=== PATIENT | female | born 1965 | race Hispanic/Latino ===

== ENCOUNTER 2021-07-16 20:59 | Emergency (ER) | payer OTHER ==
[~2021-07-16] VITALS: Ht 152.4 cm; Wt 74.6 kg
[2021-07-16] MEDS ORDERED: METFORMIN HCL500 MG PO (21:34)
[2021-07-16] MEDS ORDERED: METOPROLOL SUCC25 MG (21:35)
--- OUTSIDE RECORDS SUMMARY | 2021-07-16 21:48 | XMS ---
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 ELeroy VISIT COUNT (12 MO.) 1 BENEDICTO [place] TOTAL 1 NOTE: Visits indicate total known visits. ED/UCC VISIT TRACKING (12 MO.) 07/16/2021 21:01 [facility] [place] TYPE: Emergency COMPLAINT: - LEFT SIDE FACIAL PAIN/NO INJ INPATIENT VISIT TRACKING (12 MO.) No inpatient visits to display in this time frame [id number]
== END 2021-07-16 22:45 | disposition home or self-care (01) ==
LOC: ED 20:59
DX: R51.9 Headache, unspecified (principal); M79.602 Pain in left arm; M79.605 Pain in left leg; E11.9 Type 2 diabetes mellitus without complications; I10 Essential (primary) hypertension; Z79.84 Long term (current) use of oral hypoglycemic drugs; Z79.899 Other long term (current) drug therapy
CPT/HCPCS: 70450; 72125; 99284-25

== ENCOUNTER 2023-07-13 12:39 | Emergency (ER) | payer OTHER ==
[~2023-07-13] VITALS: Ht 152.4 cm; Wt 67.0 kg
[~2023-07-13 12:39] MED LIST: METFORMIN HCL500 MG PO; METOPROLOL SUCC25 MG
--- OUTSIDE RECORDS SUMMARY | 2023-07-13 12:41 | XMS ---
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 E.D. VISIT COUNT (12 MO.) 3 [facility] [address] [facility] TOTAL 4 NOTE: Visits indicate total known visits. ED/UCC VISIT TRACKING (12 MO.) 07/13/2023 12:[address] [facility] [place] TYPE: Emergency COMPLAINT: - NUMBNESS BOTH ARMS, BACK PAIN 07/12/2023 17:59 [facility] COMPLAINT: - Chest Pasin, sob DIAGNOSES: - sami Hays 09/09/2022 12:50 [facility] [place] TYPE: Emergency DIAGNOSES: - Other specified diseases of anus and rectum - Personal history of other diseases of the digestive system - Residual hemorrhoidal skin tags - HEMORRHOIDS 07/16/2022 16:01 [facility] COMPLAINT: - HIP PAIN DIAGNOSES: - HIP PAIN INPATIENT VISIT TRACKING (12 MO.) 07/04/2023 13:10 [facility] TYPE: Surgery DIAGNOSES: - Disease of spinal cord, unspecified - Other cervical disc degeneration, unspecified cervical region - Spinal stenosis, cervical region [id number]
[2023-07-13] MEDS ORDERED: HYDROmorphone HCL 1 MG/ML SYR IM ONE (13:30)
[2023-07-13] MEDS ORDERED: ONDANSETRON 4 MG TAB ODT SL ONE (13:30)
[2023-07-13] MEDS ORDERED: ACETAMINOPHEN 500 MG TAB PO ONE (13:30)
[2023-07-13] MEDS ORDERED: METHOCARBAMOL750 MG PO ×2 (13:33→15:45)
[2023-07-13] MEDS ORDERED: METOCLOPRAMIDE10 MG PO (13:33)
[2023-07-13] MEDS ORDERED: ARTHRITIS PAIN650 MG PO (13:34)
[2023-07-13] MEDS ORDERED: DOCUSATE SODIU100 MG (13:34)
[2023-07-13] MEDS ORDERED: FENOFIBRATE54 MG PO (13:34)
[2023-07-13] MEDS ORDERED: OXYCODONE-ACET1 EAC1 PO (13:34)
[2023-07-13] MEDS ORDERED: ROSUVASTATIN CAL5 MG PO (13:35)
[2023-07-13] MEDS ORDERED: dexAMETHasone 4 MG TAB PO ONE (14:15)
[2023-07-13] MEDS ORDERED: PERCOCET 5-3251 EACH PO (15:45)
[2023-07-13 15:50] VITALS: BP 141/81
== END 2023-07-13 15:52 | disposition home or self-care (01) ==
LOC: ED 12:39
DX: M54.12 Radiculopathy, cervical region (principal); E11.9 Type 2 diabetes mellitus without complications; I10 Essential (primary) hypertension; Z79.899 Other long term (current) drug therapy; Z79.84 Long term (current) use of oral hypoglycemic drugs
CPT/HCPCS: 96372; 99283; A9270; J1170; J8540